=== PATIENT | male | born 1980 | race Caucasian/White ===

== ENCOUNTER 2017-04-10 15:37 | Emergency (ER) | payer SELFPAY ==
[2017-04-10 15:45] VITALS: BMI 28.8
--- NOTE | 2017-04-10 16:44 | PDOC ---
History of Present Illness - General Chief Complaint: Injury Stated Complaint: FOOT INJURY Time Seen by Provider: 04/10/17 16:11 History Source: Patient Exam Limitations: No Limitations - History of Present Illness Initial Comments: 04/10/17 16:43 36M no pmh was fixing an overhead lamp when a ladder fell on his right #5 toe. 04/10/17 20:35 Past History - Past Medical History Allergies/Adverse Reactions: Allergies Allergy/AdvReac Type Severity Reaction Status Date / Time Penicillins Allergy Itching Verified 04/10/17 15:45 Home Medications: Ambulatory Orders Cephalexin Monohydrate [Keflex -] 500 mg PO QID #20 capsule 04/10/17 COPD: No Other medical history: NONE - Suicide/Smoking/Psychosocial Hx Smoking History: Never smoked Hx Alcohol Use: No Drug/Substance Use Hx: No Review of Systems - Review of Systems Able to Perform ROS?: Yes Is the patient limited Danish proficient: No Constitutional: No: Symptoms Reported HEENTM: No: Symptoms Reported Respiratory: No: Symptoms reported Cardiac (ROS): No: Symptoms Reported ABD/GI: No: Symptoms Reported : No: Symptoms Reported Musculoskeletal: No: Symptoms Reported Integumentary: Yes: Bruising, Change in Color, Change in Hair/Nails, Erythema Neurological: No: Symptoms reported All Other Systems: Reviewed and Negative *Physical Exam - Vital Signs Last Vital Signs Temp Pulse Resp BP Pulse Ox 98.0 F 79 20 134/78 98 04/10/17 15:41 04/10/17 15:41 04/10/17 15:41 04/10/17 15:41 04/10/17 15:41 - Physical Exam General Appearance: Yes: Nourished, Appropriately Dressed. No: Apparent Distress HEENT: positive: EOMI, GLORIA, Normal ENT Inspection Neck: negative: Tender Respiratory/Chest: positive: Lungs Clear, Normal Breath Sounds. negative: Chest Tender Cardiovascular: positive: Regular Rhythm, Regular Rate, S1, S2 Gastrointestinal/Abdominal: positive: Normal Bowel Sounds. negative: Tender Extremity: positive: Normal Capillary Refill, Other (right sided 5th toe: periongual laceration with elevation/partial detachement of the bed nail.) Procedures - Consent Consent obtained: Verbal, From Patient - Laceration/Wound Repair Right Anterior Medial Toe 5th digit Wound Length: to 2.5 cm Wound Explored: clean Wound's Depth, Shape: into muscle, nail-avulsed Irrigated w/ Saline: Yes Betadine Prep: Yes Anesthesia: 2% Lidocaine (finger nerve block) Wound Repaired With: Sutures Suture Size/Type: 6:0, 5:0, proline Splint Applied: Yes - Nail Trephination Method of Drainage: nail cauterized ED Treatment Course - RADIOLOGY Radiology Studies Ordered: Category Date Time Status TOE(S) RIGHT [RAD] Stat Radiology 04/10/17 16:43 Ordered Medical Decision Making - Medical Decision Making 04/10/17 20:41 36M presented with R 5th toe nail avulsion and laceration of the toe Xray positive for open fracture Repaired with trepanation and sutures. Follow up with Orthopedic surgeon *DC/Admit/Observation/Transfer Diagnosis at time of Disposition: Fracture of fifth toe, right, open - Discharge Dispostion Disposition: HOME Admit: No - Referrals - Patient Instructions Printed Discharge Instructions: DI for Suture Removal, DI for Toe Fracture Additional Instructions: Come back for wound check in 48h Referral with Dr. Roper, orthopedic surgeon Come back for any new, worsening or concerning symptom Print Language: FAROESE - Post Discharge Activity
--- NOTE | 2017-04-10 16:49 | PDOC ---
Attending Attestation - Resident Resident Name: Kenton Cazares - ED Attending Attestation I have performed the following: I have examined & evaluated the patient, The case was reviewed & discussed with the resident, I agree w/resident's findings & plan, Exceptions are as noted - HPI HPI: 04/10/17 16:49 36 yo male hit his fifth toe at home - Physicial Exam PE: 04/10/17 18:18 26-year-old male sustained a laceration and fracture to his fifth toe HEENT within normal limits. Neck supple Lungs clear to auscultation bilaterally CVS regular rate and rhythm S1, S2 Abdomen soft, nontender. Extremities full range of motion. Right fifth toe has a 2 cm laceration adjacent to his toenail Neuro alert and oriented 3, ambulatory - Medical Decision Making 04/11/17 02:12 plan antibiotics/tetanus/suturing/ortho f/u
[2017-04-10] MEDS ORDERED: DIPHTH,PERTUSS(ACELL),TET 0.5 ML DISP.SYRIN IM ONE (18:20)
[2017-04-10] MEDS ORDERED: LIDOCAINE HCL 2% (20ML MULTI-DOSE VIAL) NR ONE (18:27)
[2017-04-10] MEDS ORDERED: CEFAZOLIN 1 GM/D5W 1 GM/50 ML BAG ONE (18:29)
[2017-04-10 20:45] VITALS: BP 123/78; PULSE 93; TEMP 98.5
== END 2017-04-10 20:47 | disposition home or self-care (01) ==
LOC: JERFT 15:37 → JER 15:37
PROC: 0JQQ0ZZ Repair Right Foot Subcutaneous Tissue and Fascia, Open Approach (ICD-10-PCS; principal; 2017-04-10)
PROC: 0H9RXZZ Drainage of Toe Nail, External Approach (ICD-10-PCS; 2017-04-10)
PROC: 3E0234Z Introduction of Serum, Toxoid and Vaccine into Muscle, Percutaneous Approach (ICD-10-PCS; 2017-04-10)
PROC: 3E02329 Introduction of Other Anti-infective into Muscle, Percutaneous Approach (ICD-10-PCS; 2017-04-10)
DX: S92.534B Nondisplaced fracture of distal phalanx of right lesser toe(s), initial encounter for open fracture (principal); S91.214A Laceration without foreign body of right lesser toe(s) with damage to nail, initial encounter; W22.8XXA Striking against or struck by other objects, initial encounter; Y93.E9 Activity, other interior property and clothing maintenance; Y92.038 Other place in apartment as the place of occurrence of the external cause; Y99.8 Other external cause status
CPT/HCPCS: 73660-TC; 90715; 99282-25